=== PATIENT | female | born 1945 ===

== ENCOUNTER → 2018-11-02 11:13 | Outpatient (CLI) | payer MEDICARE ==
[2018-11-02 11:21] LABS: BASOPHILS 0.2 % (0-2); HEMATOCRIT 27.7 % (36.0-48.0); HEMOGLOBIN 7.9 g/dL (12-16); IMMATURE GRANULOCYTES 0.2 % (0-5); LYMPHOCYTES 5.4 % (15-50); MCH 25.1 pg (26.0-34.0); MCHC 28.5 g/dL (31.0-37.0); MCV 87.9 fL (80.0-100.0); MEAN PLATELET VOLUME 9.4 fL (7.4-10.4); MONOCYTES 4.7 % (2-11); NEUTROPHILS 88.5 % (40-80); PLATELET COUNT 330 10x3/uL (130-400); RBC 3.15 10x6/uL (4.00-5.40); RDW 16.8 % (11.5-14.5); WBC 12.3 10x3/uL (4.8-10.8)
== END | disposition home or self-care (01) ==
LOC: D.LABREF 11:13
PROVIDERS: ATTEND Legal Medicine
DX: D46.A Refractory cytopenia with multilineage dysplasia (principal)

== ENCOUNTER → 2018-11-09 13:35 | Outpatient (CLI) | payer MEDICARE ==
[2018-11-09 14:25] LABS: BASOPHILS 0.2 % (0-2); EOSINOPHILS 0.3 % (0-7); HEMATOCRIT 35.6 % (36.0-48.0); HEMOGLOBIN 10.6 g/dL (12-16); IMMATURE GRANULOCYTES 0.5 % (0-5); MCH 26.3 pg (26.0-34.0); MCHC 29.8 g/dL (31.0-37.0); MCV 88.3 fL (80.0-100.0); MEAN PLATELET VOLUME 10.4 fL (7.4-10.4); MONOCYTES 3.6 % (2-11); NEUTROPHILS 90.4 % (40-80); PLATELET COUNT 312 10x3/uL (130-400); RBC 4.03 10x6/uL (4.00-5.40); RDW 15.9 % (11.5-14.5); WBC 11.8 10x3/uL (4.8-10.8)
== END | disposition home or self-care (01) ==
LOC: D.LABREF 13:35
DX: D46.A Refractory cytopenia with multilineage dysplasia (principal)